=== PATIENT | female | born 1980 | race American Indian/Alaskan Native ===

== ENCOUNTER 2017-10-20 13:10 | Inpatient (IN) | payer OTHER ==
[~2017-10-20] VITALS: Ht 170.2 cm; Wt 96.2 kg
[~2017-10-20 13:10] MED LIST: INTEGRA CAPSUL1 EACH PO; PRENATAL TABLE1 EAC1 PO; VALTREX1000 MG PO
== END 2017-10-23 15:04 | disposition home or self-care (01) | DRG 774 ==
LOC: OBS/DEL 13:10 → LDR 10-21 08:29 → OB/GYN 10-21 14:40
PROC: 10E0XZZ Delivery of Products of Conception, External Approach (ICD-10-PCS; principal; 2017-10-21)
PROC: 0HQ9XZZ Repair Perineum Skin, External Approach (ICD-10-PCS; 2017-10-21)
PROC: 10907ZC Drainage of Amniotic Fluid, Therapeutic from Products of Conception, Via Natural or Artificial Opening (ICD-10-PCS; 2017-10-21)
PROC: 4A1HXCZ Monitoring of Products of Conception, Cardiac Rate, External Approach (ICD-10-PCS; 2017-10-21)
DX: O70.0 First degree perineal laceration during delivery (principal); O98.32 Other infections with a predominantly sexual mode of transmission complicating childbirth; O48.0 Post-term pregnancy; Z3A.40 40 weeks gestation of pregnancy; A60.09 Herpesviral infection of other urogenital tract; Z37.0 Single live birth; O09.523 Supervision of elderly multigravida, third trimester